=== PATIENT | female | born 1975 | race Caucasian/White ===

== ENCOUNTER 2016-10-14 07:56 | Emergency (ER) | payer OTHER ==
[~2016-10-14 07:56] MED LIST: ADVAIR 250-501 EACH IH; ADVIL200 MG PO; PREDNISONE10 MG PO; PROAIR HFA8.5 GM IH
== END 2016-10-14 09:40 | disposition home or self-care (01) ==
LOC: ER 07:56
DX: J45.901 Unspecified asthma with (acute) exacerbation (principal); Z91.018 Allergy to other foods
CPT/HCPCS: 36415; 96374; 96375